=== PATIENT | male | born 2005 | race Caucasian/White ===

== ENCOUNTER 2023-02-03 13:18 | Emergency (ER) | payer OTHER, SELFPAY ==
[2023-02-03] MEDS ORDERED: Ibuprofen 200 MG TAB ONE (13:58)
== END 2023-02-03 14:02 | disposition home or self-care (01) ==
LOC: ERS 13:18
DX: K06.8 Other specified disorders of gingiva and edentulous alveolar ridge (principal)
CPT/HCPCS: 99283

== ENCOUNTER 2023-05-02 18:28 | Emergency (ER) | payer SELFPAY ==
[2023-05-02] MEDS ORDERED: Ketorolac Tromethamine 30 MG (1 mL) VIAL ONE (19:29)
== END 2023-05-02 19:54 | disposition home or self-care (01) ==
LOC: ERS 18:28
DX: J06.9 Acute upper respiratory infection, unspecified (principal); R07.81 Pleurodynia; F17.210 Nicotine dependence, cigarettes, uncomplicated
CPT/HCPCS: 71045; 93005; 96372; J1885